=== PATIENT | male | born 1965 | race Caucasian/White ===

== ENCOUNTER 2019-02-06 15:09 | Emergency (ER) | payer MEDICAID ==
[~2019-02-06] VITALS: Ht 180.3 cm; Wt 84.1 kg
[~2019-02-06 15:09] MED LIST: CELE-193 PO; FLO0.4C PO; HYDR-4383 PO
[2019-02-06 15:35] VITALS: BP 133/88
[2019-02-06] MEDS ORDERED: ketorolac trometh inj. 60 MG/2 ML VIAL IM ONE (16:00)
[2019-02-06] MEDS ORDERED: NAPR-56 PO (16:07)
== END 2019-02-06 16:36 | disposition home or self-care (01) ==
LOC: ER 15:09
DX: M25.552 Pain in left hip (principal); G89.29 Other chronic pain; M19.90 Unspecified osteoarthritis, unspecified site; E78.00 Pure hypercholesterolemia, unspecified; I10 Essential (primary) hypertension; Z90.89 Acquired absence of other organs; Z60.2 Problems related to living alone; Z79.899 Other long term (current) drug therapy; Z56.0 Unemployment, unspecified; Z98.890 Other specified postprocedural states; Z87.442 Personal history of urinary calculi
CPT/HCPCS: 96372; 99283; J1885

== ENCOUNTER 2022-08-04 11:57 | Emergency (ER) | payer MEDICAID, MEDICARE ==
[~2022-08-04] VITALS: Ht 180.3 cm; Wt 84.1 kg
[2022-08-04 12:13] VITALS: BP 158/97
[2022-08-04] MEDS ORDERED: AMOX-117 PO (12:52)
== END 2022-08-04 12:58 | disposition home or self-care (01) ==
LOC: ER 11:58
DX: K08.89 Other specified disorders of teeth and supporting structures (principal); E78.00 Pure hypercholesterolemia, unspecified; I10 Essential (primary) hypertension; M19.90 Unspecified osteoarthritis, unspecified site; G89.29 Other chronic pain; Z87.442 Personal history of urinary calculi; Z90.49 Acquired absence of other specified parts of digestive tract; Z98.890 Other specified postprocedural states; Z56.0 Unemployment, unspecified; Z60.2 Problems related to living alone; Z79.899 Other long term (current) drug therapy
CPT/HCPCS: 99283

== ENCOUNTER 2022-09-24 09:49 | Emergency (ER) | payer MEDICAID ==
[~2022-09-24] VITALS: Ht 180.3 cm; Wt 84.1 kg
[2022-09-24 09:52] VITALS: BP 148/97
--- NOTE | 2022-09-24 10:34 | NUR ---
ULTRASOUND AT BEDSIDE.
[2022-09-24 10:45] LABS: CLARITY,URINE CLOUDY (Clear); COLOR,URINE YELLOW (Yellow); GLUCOSE, URINE 100 mg/dl (Neg); KETONES,URINE NEGATIVE (Neg); LEUKOCYTE ESTERASE ,URINE NEGATIVE (Neg); NITRITES, URINE NEGATIVE (Neg); OCCULT BLOOD,URINE MODERATE (Neg); PROTEIN,URINE NEGATIVE (Neg); UROBILINOGEN,URINE 0.2 E.U/dL (0.2-1.0)
[2022-09-24 10:53] LABS: MUCUS STRANDS MANY /LPF (Neg); SQUAMOUS EPITHELIAL CELL,UR FEW /LPF (FEW); UA COLLECTION TYPE CLN CATCH MIDSTREAM
[2022-09-24 10:54] LABS: BACTERIA,URINE FEW /HPF (Neg); HYALINE CASTS 0-3 /LPF (NEGATIVE); RBC,URINE 0-2 /HPF (0-2); WBC,URINE 0-4 /HPF (0-4)
== END 2022-09-24 11:19 | disposition home or self-care (01) ==
LOC: ER 09:49
DX: R10.2 Pelvic and perineal pain (principal); R10.30 Lower abdominal pain, unspecified; E78.00 Pure hypercholesterolemia, unspecified; I10 Essential (primary) hypertension; Z59.00 Homelessness unspecified; Z87.442 Personal history of urinary calculi; Z79.899 Other long term (current) drug therapy
CPT/HCPCS: 76857; 81001; 99284

== ENCOUNTER 2023-08-07 06:08 | Emergency (ER) | payer MEDICAID ==
[~2023-08-07] VITALS: Ht 180.3 cm; Wt 84.1 kg
[2023-08-07 06:15] VITALS: TEMP 98.9
[2023-08-07 09:21] LABS: BILIRUBIN,URINE NEGATIVE (Neg); CLARITY,URINE CLEAR (Clear); COLOR,URINE YELLOW (Yellow); GLUCOSE, URINE 500 mg/dl (Neg); KETONES,URINE 15 mg/dl (Neg); LEUKOCYTE ESTERASE ,URINE NEGATIVE (Neg); NITRITES, URINE NEGATIVE (Neg); OCCULT BLOOD,URINE MODERATE (Neg); PROTEIN,URINE NEGATIVE (Neg); UROBILINOGEN,URINE 0.2 E.U/dL (0.2-1.0)
[2023-08-07 09:26] LABS: UA COLLECTION TYPE NON-SPECIFIED
[2023-08-07 09:27] LABS: BACTERIA,URINE NONE SEEN /HPF (Neg); WBC,URINE 0-4 /HPF (0-4)
[2023-08-07 09:28] LABS: HYALINE CASTS 0-3 /LPF (NEGATIVE); MUCUS STRANDS FEW /LPF (Neg); SQUAMOUS EPITHELIAL CELL,UR FEW /LPF (FEW)
[2023-08-07 11:30] VITALS: BP 158/114; PULSE 101; RESP 16; O2SAT 99
== END 2023-08-07 11:32 | disposition home or self-care (01) ==
LOC: ER 06:08
DX: K59.00 Constipation, unspecified (principal); N21.0 Calculus in bladder; R10.9 Unspecified abdominal pain; E78.00 Pure hypercholesterolemia, unspecified; I10 Essential (primary) hypertension; M19.90 Unspecified osteoarthritis, unspecified site; F17.200 Nicotine dependence, unspecified, uncomplicated; Z79.2 Long term (current) use of antibiotics; Z79.899 Other long term (current) drug therapy
CPT/HCPCS: 72170; 74018; 81001; 99285

== ENCOUNTER 2023-10-13 08:07 | Outpatient (CLI) | payer MEDICAID | END 2023-10-13 23:59 | disposition home or self-care (01) | LOC: 64 CT 08:07 | PROVIDERS: ATTEND Student in an Organized Health Care Education/Training Program | DX: N20.0 Calculus of kidney (principal); N28.1 Cyst of kidney, acquired; N21.0 Calculus in bladder; K76.0 Fatty (change of) liver, not elsewhere classified | CPT/HCPCS: 74176 ==

== ENCOUNTER 2024-02-23 09:20 | Day surgery (SDC) | payer MEDICAID ==
[2024-02-23] VITALS (12 sets, daily range): BP systolic 92–175; BP diastolic 57–98; PULSE 71–88; RESP 16; TEMP 97.8; O2SAT 95–99
[~2024-02-23] VITALS: Ht 180.3 cm; Wt 88.3 kg
[2024-02-23] MEDS ORDERED: LIDOcaine 1% 30ml preserv. free vial ONE (10:22)
[2024-02-23] MEDS ORDERED: fentaNYL/PF 50MCG/1 ML 2ML syringe ONE ×2 (10:23→11:41)
[2024-02-23] MEDS ORDERED: midazolam 1 mg/ML 2ml injection ONE ×2 (10:23→11:25)
[2024-02-23] MEDS ORDERED: iohexol 350MG/ML 100ml bottle IV ONE (10:23)
[2024-02-23] MEDS ORDERED: iohexol 350 MG/ML 50ML vial IV ONE ×2 (10:25→11:38)
[2024-02-23 10:27] LABS: BASOPHILS # (AUTO) 0.1 X10'3 (0-0.2); EOSINOPHILS # (AUTO) 0.1 X10'3 (0-0.9); EOSINOPHILS % (AUTO) 1.1 % (0-6); HEMATOCRIT 40.2 % (42.0-52.0); HEMOGLOBIN 13.9 g/dl (14.0-17.9); LYMPHOCYTES % (AUTO) 27.4 % (21-51); MEAN CORPUSCULAR HEMOGLOBIN 32.9 PG (27.0-31.0); MEAN CORPUSCULAR HGB CONC 34.7 g/dL (33.0-36.5); MEAN CORPUSCULAR VOLUME 94.8 FL (78-98); MEAN PLATELET VOLUME 7.8 FL (7.4-10.4); MONOCYTES # (AUTO) 0.6 X10'3 (0-0.9); MONOCYTES % (AUTO) 7.6 % (2-12); NEUTROPHILS # (AUTO) 4.6 X10'3 (1.8-7.7); NEUTROPHILS % (AUTO) 62.9 % (42-75); PLATELET COUNT 427 X10'3 (140-440); RED BLOOD COUNT 4.24 X10'6 (4.70-6.10); RED CELL DISTRIBUTION WIDTH 12.8 % (11.5-14.5); WHITE BLOOD COUNT 7.3 X10'3 (4.5-11.0)
[2024-02-23 10:28] LABS: APTT 29 SECONDS (22-32)
[2024-02-23 10:40] LABS: ANION GAP 9 (8-16); BLOOD UREA NITROGEN 18 MG/DL (7-18); BUN/CREATININE RATIO 19.6 (10.0-20.0); CALCIUM 9.3 MG/DL (8.5-10.1); CHLORIDE 100 MMOL/L (99-107); CREATININE 0.92 MG/DL (0.60-1.10); GLUCOSE 114 MG/DL (70-104); POTASSIUM 3.5 MMOL/L (3.5-5.1); PRO BRAIN NATRIURETIC PEPTIDE 113 PG/ML (0-125); SODIUM 137 MMOL/L (135-145); TOTAL CARBON DIOXIDE 27.8 MMOL/L (24-32); eCRCL 92 ML/MIN; eGFR 84 ML/MIN
[2024-02-23] MEDS: diphenhydrAMINE 25mg capsule PO PRN (10:44)
[2024-02-23] MEDS: LORazepam 0.5 MG tablet PO PRN (10:44)
[2024-02-23] MEDS: normal saline 1,000 ML IV SCH (10:45)
[2024-02-23] MEDS ORDERED: FLO0.4C (10:48)
[2024-02-23] MEDS ORDERED: METO-411 PO (10:48)
[2024-02-23] MEDS ORDERED: PRAV80TA3 PO (10:48)
[2024-02-23] MEDS ORDERED: LOSA50TA64 PO (10:48)
[2024-02-23] MEDS ORDERED: IBUP-2697 PO (10:48)
[2024-02-23] MEDS ORDERED: HYDR25TA4 PO (10:48)
[2024-02-23] MEDS ORDERED: ASPI-611 PO (10:48)
[2024-02-23] MEDS ORDERED: NITR0.4T48 (10:48)
[2024-02-23 10:54] LABS: PROTHROMBIN TIME 10.3 SECONDS (9.0-12.0)
[2024-02-23] MEDS ORDERED: normal saline 1000ml 1,000 ML IV SCH (12:30)
[2024-02-23] MEDS ORDERED: nitroGLYCERIN 0.4mg SUBLingual tab SL PRN (12:30)
[2024-02-23] MEDS ORDERED: OXAZEpam 15mg capsule PO PRN (12:30)
[2024-02-23] MEDS ORDERED: HYDROcodone/acetaminophen 5mg/325mg tablet PO PRN (12:30)
[2024-02-23] MEDS ORDERED: HYDROcodone/acetaminophen 10/325mg tab PO PRN (12:30)
[2024-02-23] MEDS ORDERED: ondansetron/PF 4mg/2ml inj IV PRN (12:30)
[2024-02-23] MEDS ORDERED: proCHLORperazine 10 MG/2 ml inj IV PRN (12:30)
== END 2024-02-23 18:00 | disposition home or self-care (01) ==
LOC: SSTAY O 09:20
PROVIDERS: ATTEND Internal Medicine Cardiovascular Disease
DX: R94.39 Abnormal result of other cardiovascular function study (principal); I42.9 Cardiomyopathy, unspecified; I25.10 Atherosclerotic heart disease of native coronary artery without angina pectoris; E78.5 Hyperlipidemia, unspecified; I73.9 Peripheral vascular disease, unspecified; J44.9 Chronic obstructive pulmonary disease, unspecified; I44.7 Left bundle-branch block, unspecified; I10 Essential (primary) hypertension; Z79.01 Long term (current) use of anticoagulants; Z79.899 Other long term (current) drug therapy; Z98.890 Other specified postprocedural states; Z87.891 Personal history of nicotine dependence
CPT/HCPCS: 36415; 71046; 80048; 83880; 85025; 85610; 85730; 93005; 93458; 99152; 99153; J1644; J2003; J2250; J3010; J7030; Q0163; Q9967; A6258; C1760; C1769; C1894

== ENCOUNTER 2024-04-13 10:13 | Inpatient (IN) | payer MEDICAID ==
[2024-04-06 13:06] VITALS: PULSE 77; RESP 12; O2SAT 96
[2024-04-06 14:01] LABS: BASOPHILS # (AUTO) 0.1 X10'3 (0-0.2); BASOPHILS % (AUTO) 1.2 % (0-1); EOSINOPHILS # (AUTO) 0.2 X10'3 (0-0.9); EOSINOPHILS % (AUTO) 2.3 % (0-6); LYMPHOCYTES # (AUTO) 2.3 X10'3 (1.1-4.8); LYMPHOCYTES % (AUTO) 30.9 % (21-51); MEAN CORPUSCULAR HEMOGLOBIN 32.7 PG (27.0-31.0); MEAN CORPUSCULAR HGB CONC 34.6 g/dL (33.0-36.5); MEAN CORPUSCULAR VOLUME 94.6 FL (78-98); MEAN PLATELET VOLUME 7.4 FL (7.4-10.4); MONOCYTES # (AUTO) 0.6 X10'3 (0-0.9); MONOCYTES % (AUTO) 8.1 % (2-12); NEUTROPHILS # (AUTO) 4.3 X10'3 (1.8-7.7); NEUTROPHILS % (AUTO) 57.5 % (42-75); PRE OP HEMATOCRIT 41.3 % (42.0-52.0); PRE OP HEMOGLOBIN 14.3 g/dL (14.0-17.9); PRE OP PLATELET COUNT 459 X10'3 (140-440); PRE OP WHITE BLOOD COUNT 7.5 10'3 (4.8-10.8); RED BLOOD COUNT 4.36 X10'6 (4.70-6.10); RED CELL DISTRIBUTION WIDTH 12.6 % (11.5-14.5)
[2024-04-06 14:15] LABS: BILIRUBIN,URINE NEGATIVE (Neg); CLARITY,URINE CLEAR (Clear); COLOR,URINE YELLOW (Yellow); GLUCOSE, URINE NEGATIVE (Neg); KETONES,URINE NEGATIVE (Neg); LEUKOCYTE ESTERASE ,URINE NEGATIVE (Neg); NITRITES, URINE NEGATIVE (Neg); OCCULT BLOOD,URINE TRACE-INTACT (Neg); PROTEIN,URINE NEGATIVE (Neg); UROBILINOGEN,URINE 0.2 E.U/dL (0.2-1.0)
[2024-04-06 14:16] LABS: UA COLLECTION TYPE NON-SPECIFIED
[2024-04-06 14:19] LABS: HEMOGLOBIN A1C 5.8 % (4.5-6.2)
[2024-04-06 14:20] LABS: PRE OP PROTIME 10.6 SECONDS (9.0-12.0)
[2024-04-06 14:21] LABS: ALBUMIN/GLOBULIN RATIO 0.9 (1.1-1.5); ALKALINE PHOSPHATASE 93 IU/L (46-116); BLOOD UREA NITROGEN 18 MG/DL (7-18); BUN/CREATININE RATIO 19.4 (10.0-20.0); CALCIUM 8.3 MG/DL (8.5-10.1); CHLORIDE 98 MMOL/L (99-107); CREATININE 0.93 MG/DL (0.60-1.10); PRE OP ALT 31 U/L (30-65); PRE OP ANION GAP 9 (8-16); PRE OP AST 16 U/L (10-37); PRE OP BILIRUB, TOTAL 0.3 MG/DL (0.0-1.0); PRE OP GLUCOSE 107 MG/DL (70-104); PRE OP POTASSIUM 3.6 MMOL/L (3.4-5.1); PRE OP SODIUM 136 MMOL/L (135-145); TOTAL CARBON DIOXIDE 29.3 MMOL/L (24-32); TOTAL PROTEIN 8.4 G/DL (6.4-8.2); eGFR 83 ML/MIN
[2024-04-06 14:22] LABS: BACTERIA,URINE NONE SEEN /HPF (Neg); MUCUS STRANDS NONE SEEN /LPF (Neg); RBC,URINE 0-2 /HPF (0-2); SQUAMOUS EPITHELIAL CELL,UR NONE SEEN /LPF (FEW); WBC,URINE 0-4 /HPF (0-4)
[2024-04-07 06:46] LABS: ABG BASE EXCESS 1.3 mmol/L (-2.0-3.0); ABG OXYGEN SATURATION 96.1 % (94.0-98.0); ABG PCO2 (T) 36.7 mmHg (35.0-48.0); ABG PH (T) 7.451 (7.350-7.450); ABG PO2 (T) 82.7 mmHg (83.0-108.0); ALLEN'S TEST POSITIVE; FCOHb 0.1 % (0.5-1.5); FHHb 3.9 % (0.0-5.0); MODE ROOM AIR; TOTAL HEMOGLOBIN 14.7 G/dl (13.5-17.5)
[~2024-04-13] VITALS: Ht 180.3 cm; Wt 89.5 kg
[2024-04-13] VITALS (18 sets, daily range): BP systolic 91–162; BP diastolic 52–92; PULSE 52–97; RESP 14–32; TEMP 98.7; O2SAT 95–100
[2024-04-13] MEDS: ceFAZolin 2gm in dextrose, iso 50 ML IV ONE (05:30)
[~2024-04-13 10:13] MED LIST changes: +ASPI-611 PO; -CELE-193 PO; +DOCU100C40 PO; -HYDR-4383 PO; +HYDR25TA4 PO; +Insulin Reg/NS 100units/100mL 100 ML IV SCH; +LOSA50TA64 PO; +METO-411 PO; +PRAV80TA3 PO; +dextrose 50%-water 50ml dispensing syringe IV PRN; +insulin glargine (Lantus) pen - multi-dose SQ PRN
[2024-04-13] MEDS ORDERED: epiNEPHrine 1 mg/ml inj ONE (10:44)
[2024-04-13] MEDS ORDERED: vancomycin 1,000mg inj ONE (10:45)
[2024-04-13] MEDS ORDERED: ROPIVAcaine 0.5% (5mg/ml) 30ml vial ONE (10:45)
[2024-04-13] MEDS ORDERED: ceFAZolin 1000mg inj ONE (10:45)
[2024-04-13] MEDS: ringers solution, lacted 1,000 ML IV SCH (10:59)
[2024-04-13] MEDS: mupirocin 2% nasal ointment 1gm UD NS ONE (11:00)
[2024-04-13] MEDS: VANCOMYCIN/H2O 1.5g/300mL PB 300 ML IV ONE (11:00)
[2024-04-13] MEDS: famotidine 20mg tablet PO ONE (11:02)
[2024-04-13] MEDS: metoprolol tartrate 12.5mg (1/2 tablet) PO ONE (11:02)
[2024-04-13] MEDS ORDERED: sevoflurane 250ml liquid IH ONE (12:38)
[2024-04-13] MEDS: LORazepam 2 mg/ml vial IV ONE (12:40)
[2024-04-13] MEDS ORDERED: SUfentanil 50mcg/ml 1ml amp IV ONE (12:43)
[2024-04-13] MEDS ORDERED: MIDAZolam 1 MG/ML 5ML VIAL ONE (12:43)
[2024-04-13 13:23] LABS: ABG BASE EXCESS 0.5 mmol/L (-2.0-3.0); ABG HCO3 23.9 mmol/L (21.0-28.0); ABG OXYGEN SATURATION 99.4 % (94.0-98.0); ABG PCO2 34.6 mmHg (35.0-48.0); ABG PH 7.457 (7.350-7.450); ABG PO2 254.3 mmHg (83.0-108.0); CL (ABG) 99 mmol/L (98-107); FHHb 0.6 % (0.0-5.0); FMetHb 0.3 % (0.0-1.5); FO2Hb 99.1 % (94.0-98.0); GLUCOSE (ABG) 110 mg/dl (65-95); IONIZED CA (ABG) 1.13 mmol/L (1.15-1.33); K (ABG) 3.6 mmol/L (3.40-4.50); TOTAL HEMOGLOBIN 12.8 G/dl (13.5-17.5)
[2024-04-13] MEDS: papaverine 30 mg/ml 2ml inj. IA ONE (13:55)
[2024-04-13 14:28] LABS: ABG BASE EXCESS 1.3 mmol/L (-2.0-3.0); ABG OXYGEN SATURATION 99.3 % (94.0-98.0); ABG PCO2 36.1 mmHg (35.0-48.0); ABG PH 7.459 (7.350-7.450); CL (ABG) 96 mmol/L (98-107); FCOHb 0.1 % (0.5-1.5); FHHb 0.7 % (0.0-5.0); FMetHb 0.3 % (0.0-1.5); FO2Hb 98.9 % (94.0-98.0); GLUCOSE (ABG) 96 mg/dl (65-95); K (ABG) 3.5 mmol/L (3.40-4.50); TOTAL HEMOGLOBIN 8.8 G/dl (13.5-17.5)
[2024-04-13 15:00] LABS: ABG BASE EXCESS -1.1 mmol/L (-2.0-3.0); ABG HCO3 24.4 mmol/L (21.0-28.0); ABG OXYGEN SATURATION 99.2 % (94.0-98.0); ABG PCO2 43.7 mmHg (35.0-48.0); ABG PH 7.364 (7.350-7.450); CL (ABG) 99 mmol/L (98-107); FCOHb 0.3 % (0.5-1.5); FHHb 0.8 % (0.0-5.0); FMetHb 0.3 % (0.0-1.5); FO2Hb 98.6 % (94.0-98.0); GLUCOSE (ABG) 145 mg/dl (65-95); IONIZED CA (ABG) 1.02 mmol/L (1.15-1.33); K (ABG) 3.7 mmol/L (3.40-4.50); TOTAL HEMOGLOBIN 10.2 G/dl (13.5-17.5)
[2024-04-13 15:27] LABS: ABG HCO3 24.1 mmol/L (21.0-28.0); ABG OXYGEN SATURATION 99.3 % (94.0-98.0); ABG PCO2 47.2 mmHg (35.0-48.0); ABG PH 7.326 (7.350-7.450); CL (ABG) 100 mmol/L (98-107); FCOHb 0.3 % (0.5-1.5); FHHb 0.7 % (0.0-5.0); FMetHb 0.3 % (0.0-1.5); FO2Hb 98.7 % (94.0-98.0); GLUCOSE (ABG) 188 mg/dl (65-95); IONIZED CA (ABG) 1.03 mmol/L (1.15-1.33); K (ABG) 3.7 mmol/L (3.40-4.50); TOTAL HEMOGLOBIN 10.4 G/dl (13.5-17.5)
[2024-04-13] MEDS ORDERED: dextrose 50%-water 50ml dispensing syringe IV PRN (16:10)
[2024-04-13] MEDS ORDERED: potassium CL 10mEq/100ml bag 100 ML IV PRN (16:10)
[2024-04-13] MEDS ORDERED: bisacodyl 10mg suppository rectal RC PRN (16:10)
[2024-04-13] MEDS ORDERED: acetaminophen 325mg tablet PO PRN (16:10)
[2024-04-13] MEDS ORDERED: insulin glargine (Lantus) pen - multi-dose SQ PRN (16:10)
[2024-04-13] MEDS ORDERED: mineral oil 133ml enema RC PRN (16:10)
[2024-04-13] MEDS ORDERED: niCARDipine-NS 40mg/200ml IVPB 200 ML IV PRN (16:10)
[2024-04-13] MEDS: nitroGLYCERIN-Tridil 50MG/D5W 250 ML IV SCH (16:10)
[2024-04-13] MEDS ORDERED: potassium Cl 40MEQ/1/2NS 520ml 520 ML IV PRN (16:10)
[2024-04-13] MEDS ORDERED: sodium phosphate inj. 30 MMOL in dextrose 5%-water 250 ML IV PRN (16:10)
[2024-04-13] MEDS: Insulin Reg/NS 100units/100mL 100 ML IV SCH (16:10)
[2024-04-13] MEDS ORDERED: metoclopramide 5 mg/ml inj IV PRN (16:10)
[2024-04-13] MEDS ORDERED: propofol inj 20 ML IV ONE (16:14)
[2024-04-13] MEDS ORDERED: metoprolol tartrate 1mg/ml inj IV ONE (16:14)
[2024-04-13] MEDS ORDERED: rocuronium 10mg/ml inj IV ONE ×3 (16:14)
[2024-04-13 16:15] LABS: ABG BASE EXCESS -1.7 mmol/L (-2.0-3.0); ABG HCO3 24.6 mmol/L (21.0-28.0); ABG PCO2 48.3 mmHg (35.0-48.0); ABG PH 7.324 (7.350-7.450); CL (ABG) 102 mmol/L (98-107); FCOHb 0.1 % (0.5-1.5); FHHb 16.9 % (0.0-5.0); FMetHb 0.2 % (0.0-1.5); FO2Hb 82.8 % (94.0-98.0); GLUCOSE (ABG) 168 mg/dl (65-95); IONIZED CA (ABG) 1.16 mmol/L (1.15-1.33); K (ABG) 3.2 mmol/L (3.40-4.50); TOTAL HEMOGLOBIN 11.2 G/dl (13.5-17.5)
[2024-04-13 16:17] LABS: ACTIVATED CLOTTING TIME 113 SEC (101-148)
[2024-04-13] MEDS: morphine 4 MG/ML inj SYRINge IV PRN (16:37)
[2024-04-13 16:46] LABS: ABG BASE EXCESS -2.4 mmol/L (-2.0-3.0); ABG HCO3 22.7 mmol/L (21.0-28.0); ABG OXYGEN SATURATION 98.4 % (94.0-98.0); ABG PCO2 (T) 39.7 mmHg (35.0-48.0); ABG PH (T) 7.373 (7.350-7.450); FCOHb 0.2 % (0.5-1.5); FHHb 1.6 % (0.0-5.0); FMetHb 0.3 % (0.0-1.5); FO2Hb 97.9 % (94.0-98.0); MODE VENT - SIMV/VC; PATIENT TEMPERATURE 36.7; PEEP 5 cm H2O; RESPIRATORY RATE 12 b/min; TIDAL VOLUME 500 mL
[2024-04-13 16:50] LABS: BASOPHILS % (AUTO) 0.1 % (0-1); EOSINOPHILS % (AUTO) 0.3 % (0-6); HEMATOCRIT 28.2 % (42.0-52.0); HEMOGLOBIN 9.6 g/dl (14.0-17.9); LYMPHOCYTES % (AUTO) 6.6 % (21-51); MEAN CORPUSCULAR HEMOGLOBIN 32.6 PG (27.0-31.0); MEAN CORPUSCULAR HGB CONC 34.2 g/dL (33.0-36.5); MEAN CORPUSCULAR VOLUME 95.3 FL (78-98); MEAN PLATELET VOLUME 7.3 FL (7.4-10.4); MONOCYTES # (AUTO) 0.6 X10'3 (0-0.9); MONOCYTES % (AUTO) 3.8 % (2-12); NEUTROPHILS # (AUTO) 13.8 X10'3 (1.8-7.7); NEUTROPHILS % (AUTO) 89.2 % (42-75); PLATELET COUNT 230 X10'3 (140-440); RED BLOOD COUNT 2.96 X10'6 (4.70-6.10); RED CELL DISTRIBUTION WIDTH 12.5 % (11.5-14.5); WHITE BLOOD COUNT 15.5 X10'3 (4.5-11.0)
[2024-04-13] MEDS: albumin (Human) 5% 250ml 250 ML IV PRN (17:04)
[2024-04-13] MEDS: sodium chloride 0.45% 1,000 ML IV SCH (17:07)
[2024-04-13 17:09] LABS: ALANINE AMINOTRANSFERASE 23 U/L (12-78); ALBUMIN 3.1 G/DL (3.4-5.0); ALBUMIN/GLOBULIN RATIO 1.6 (1.1-1.5); ALKALINE PHOSPHATASE 42 IU/L (46-116); ANION GAP 7 (8-16); ASPARTATE AMINO TRANSFERASE 19 U/L (10-37); BILIRUBIN,TOTAL 0.6 MG/DL (0.1-1.0); BLOOD UREA NITROGEN 11 MG/DL (7-18); BUN/CREATININE RATIO 18.6 (10.0-20.0); CALCIUM 7.3 MG/DL (8.5-10.1); CHLORIDE 111 MMOL/L (99-107); CREATININE 0.59 MG/DL (0.60-1.10); GLUCOSE 143 MG/DL (70-104); PHOSPHORUS 2.6 MG/DL (2.3-4.5); SODIUM 144 MMOL/L (135-145); TOTAL CARBON DIOXIDE 25.7 MMOL/L (24-32); eCRCL 144 ML/MIN; eGFR > 90 ML/MIN
[2024-04-13 17:32] LABS: POTASSIUM 2.7 MMOL/L (3.5-5.1)
[2024-04-13] MEDS: magnesium sulf-water 4G/100mL 100 ML IV PRN (17:43)
[2024-04-13] MEDS: DOCUMENT DATE & TIME OF BETA-BLOCKER PO ONE (17:46)
[2024-04-13] MEDS: potassium Cl 40MEQ/270ML bag 250 ML IV PRN (17:56)
[2024-04-13] MEDS: dexmedetomidin/NS 400mcg/100ml 100 ML IV PRN (18:38)
[2024-04-13 18:48] LABS: APTT 24 SECONDS (22-32); INR 1.1 INR; PROTHROMBIN TIME 11.9 SECONDS (9.0-12.0)
[2024-04-13] MEDS: ketorolac trometh 15mg/ml vial 15 MG/ML ML IV SCH (19:11)
[2024-04-13] MEDS: HYDROcodone/acetaminophen 10/325mg tab PO PRN (20:04)
[2024-04-13] MEDS: mupirocin 2% nasal ointment 1gm UD NS SCH (20:04)
[2024-04-13] MEDS: sennosides/docusate sodium tablet PO SCH (20:04)
[2024-04-13] MEDS: ondansetron/PF 4mg/2ml inj IV PRN (20:04)
[2024-04-13] MEDS: VANCOMYCIN 1GM 200ML H20 (PEG) 200 ML IV SCH (20:04)
[2024-04-13] MEDS: atorvastatin 10mg tablet PO SCH (20:05)
[2024-04-13 20:17] LABS: ABG BASE EXCESS -4.3 mmol/L (-2.0-3.0); ABG HCO3 20.7 mmol/L (21.0-28.0); ABG OXYGEN SATURATION 96.7 % (94.0-98.0); ABG PCO2 (T) 36.8 mmHg (35.0-48.0); ABG PH (T) 7.367 (7.350-7.450); ABG PO2 (T) 90.5 mmHg (83.0-108.0); FCOHb 0.3 % (0.5-1.5); FHHb 3.3 % (0.0-5.0); FMetHb 0.3 % (0.0-1.5); FO2Hb 96.1 % (94.0-98.0); MODE spont 10; PATIENT TEMPERATURE 36.6; TOTAL HEMOGLOBIN 10.2 G/dl (13.5-17.5)
[2024-04-13 22:40] LABS: BASOPHILS % (AUTO) 0.1 % (0-1); EOSINOPHILS % (AUTO) 0 % (0-6); HEMATOCRIT 27.5 % (42.0-52.0); HEMOGLOBIN 9.6 g/dl (14.0-17.9); LYMPHOCYTES # (AUTO) 0.4 X10'3 (1.1-4.8); LYMPHOCYTES % (AUTO) 2.7 % (21-51); MEAN CORPUSCULAR HEMOGLOBIN 33.3 PG (27.0-31.0); MEAN PLATELET VOLUME 7.3 FL (7.4-10.4); MONOCYTES # (AUTO) 0.7 X10'3 (0-0.9); MONOCYTES % (AUTO) 4.2 % (2-12); NEUTROPHILS # (AUTO) 14.7 X10'3 (1.8-7.7); PLATELET COUNT 244 X10'3 (140-440); RED BLOOD COUNT 2.89 X10'6 (4.70-6.10); RED CELL DISTRIBUTION WIDTH 12.5 % (11.5-14.5); WHITE BLOOD COUNT 15.8 X10'3 (4.5-11.0)
[2024-04-13 22:55] LABS: ANION GAP 4 (8-16); BLOOD UREA NITROGEN 15 MG/DL (7-18); BUN/CREATININE RATIO 17.9 (10.0-20.0); CALCIUM 7.8 MG/DL (8.5-10.1); CHLORIDE 110 MMOL/L (99-107); CREATININE 0.84 MG/DL (0.60-1.10); GLUCOSE 119 MG/DL (70-104); MAGNESIUM 2.6 MG/DL (1.5-2.4); PHOSPHORUS 1.5 MG/DL (2.3-4.5); POTASSIUM 4.3 MMOL/L (3.5-5.1); SODIUM 141 MMOL/L (135-145); TOTAL CARBON DIOXIDE 26.7 MMOL/L (24-32); eCRCL 101 ML/MIN; eGFR > 90 ML/MIN
[2024-04-13] MEDS: potassium Cl 20mEq/100mL bag 100 ML IV PRN (23:14)
[2024-04-13] MEDS: ceFAZolin/D5W- 1GM premix 50 ML IV SCH (23:51)
[2024-04-14] VITALS (25 sets, daily range): BP systolic 84–146; BP diastolic 44–76; PULSE 79–117; RESP 16–30; O2SAT 92–98
[2024-04-14] MEDS: sodium phosphate inj. 15 MMOL in dextrose 5%-water 250 ML IV PRN (00:51)
[2024-04-14 03:12] LABS: BASOPHILS % (AUTO) 0 % (0-1); EOSINOPHILS % (AUTO) 0 % (0-6); HEMOGLOBIN 9.1 g/dl (14.0-17.9); LYMPHOCYTES # (AUTO) 0.6 X10'3 (1.1-4.8); LYMPHOCYTES % (AUTO) 3.8 % (21-51); MEAN CORPUSCULAR HEMOGLOBIN 33.2 PG (27.0-31.0); MEAN CORPUSCULAR HGB CONC 35.1 g/dL (33.0-36.5); MEAN CORPUSCULAR VOLUME 94.7 FL (78-98); MEAN PLATELET VOLUME 7.3 FL (7.4-10.4); MONOCYTES # (AUTO) 0.2 X10'3 (0-0.9); MONOCYTES % (AUTO) 1.5 % (2-12); NEUTROPHILS # (AUTO) 13.7 X10'3 (1.8-7.7); NEUTROPHILS % (AUTO) 94.7 % (42-75); PLATELET COUNT 237 X10'3 (140-440); RED BLOOD COUNT 2.75 X10'6 (4.70-6.10); RED CELL DISTRIBUTION WIDTH 12.7 % (11.5-14.5); WHITE BLOOD COUNT 14.4 X10'3 (4.5-11.0)
[2024-04-14 04:01] LABS: ALANINE AMINOTRANSFERASE 25 U/L (12-78); ALBUMIN 3.8 G/DL (3.4-5.0); ALBUMIN/GLOBULIN RATIO 1.6 (1.1-1.5); ALKALINE PHOSPHATASE 40 IU/L (46-116); ANION GAP 5 (8-16); ASPARTATE AMINO TRANSFERASE 24 U/L (10-37); BILIRUBIN,TOTAL 0.5 MG/DL (0.1-1.0); BLOOD UREA NITROGEN 16 MG/DL (7-18); BUN/CREATININE RATIO 18.6 (10.0-20.0); CALCIUM 7.6 MG/DL (8.5-10.1); CHLORIDE 109 MMOL/L (99-107); CREATININE 0.86 MG/DL (0.60-1.10); GLUCOSE 149 MG/DL (70-104); MAGNESIUM 2.5 MG/DL (1.5-2.4); PHOSPHORUS 3.2 MG/DL (2.3-4.5); SODIUM 139 MMOL/L (135-145); TOTAL CARBON DIOXIDE 25.4 MMOL/L (24-32); TOTAL PROTEIN 6.2 G/DL (6.4-8.2); eCRCL 99 ML/MIN; eGFR > 90 ML/MIN
[2024-04-14] MEDS: aspirin 81mg tab.chew PO SCH (07:32)
[2024-04-14] MEDS: metoprolol tartrate 12.5mg (1/2 tablet) PO SCH (07:32)
[2024-04-14] MEDS: albumin (Human) 5% 250ml 250 ML IV ONE (14:06)
[2024-04-14] MEDS: acetaminophen 325mg tablet PO PRN (19:25)
[2024-04-14] MEDS ORDERED: dextrose 50%-water 50ml dispensing syringe IV PRN ×2 (19:30)
[2024-04-14] MEDS ORDERED: glucagon, human recombinant 1mg kit SUBCUT PRN (19:30)
[2024-04-14] MEDS ORDERED: DEXTROSE 15 GM of carb/4 tabs (each vial/BOTTLE has 4 tablets) PO PRN ×2 (19:30)
[2024-04-14] MEDS: metoprolol tartrate 12.5mg (1/2 tablet) PO ONE (19:54)
[2024-04-14] MEDS: metoprolol tartrate 25mg tablet PO SCH (20:00)
[2024-04-14] MEDS: INSULIN LISPRO 100 UNIT/ML INSULN.PEN MULTI-DOSE SQ SCH (21:22)
[2024-04-14] MEDS: insulin glargine (Lantus) pen - multi-dose SQ SCH (21:23)
[2024-04-15] VITALS (27 sets, daily range): BP systolic 90–135; BP diastolic 52–78; PULSE 84–116; RESP 14–31; TEMP 97–100.8; O2SAT 93–98
[2024-04-15] MEDS: morphine 2 MG/ML inj. syringe IV PRN (00:27)
[2024-04-15 02:20] LABS: BASOPHILS % (AUTO) 0.1 % (0-1); EOSINOPHILS % (AUTO) 0 % (0-6); LYMPHOCYTES # (AUTO) 1.3 X10'3 (1.1-4.8); LYMPHOCYTES % (AUTO) 7.6 % (21-51); MEAN CORPUSCULAR HEMOGLOBIN 32.9 PG (27.0-31.0); MEAN CORPUSCULAR HGB CONC 34.6 g/dL (33.0-36.5); MEAN CORPUSCULAR VOLUME 95.2 FL (78-98); MEAN PLATELET VOLUME 7.7 FL (7.4-10.4); MONOCYTES # (AUTO) 1.5 X10'3 (0-0.9); MONOCYTES % (AUTO) 8.3 % (2-12); NEUTROPHILS # (AUTO) 14.8 X10'3 (1.8-7.7); PLATELET COUNT 241 X10'3 (140-440); RED BLOOD COUNT 2.06 X10'6 (4.70-6.10); RED CELL DISTRIBUTION WIDTH 12.6 % (11.5-14.5); WHITE BLOOD COUNT 17.6 X10'3 (4.5-11.0)
[2024-04-15 02:32] LABS: ALBUMIN 3.2 G/DL (3.4-5.0); ANION GAP 5 (8-16); BLOOD UREA NITROGEN 20 MG/DL (7-18); BUN/CREATININE RATIO 20.8 (10.0-20.0); CALCIUM 7.7 MG/DL (8.5-10.1); CHLORIDE 102 MMOL/L (99-107); CREATININE 0.96 MG/DL (0.60-1.10); GLUCOSE 158 MG/DL (70-104); MAGNESIUM 2.3 MG/DL (1.5-2.4); PHOSPHORUS 2.3 MG/DL (2.3-4.5); POTASSIUM 4.2 MMOL/L (3.5-5.1); SODIUM 134 MMOL/L (135-145); TOTAL CARBON DIOXIDE 27.5 MMOL/L (24-32); eCRCL 88 ML/MIN; eGFR 80 ML/MIN
[2024-04-15 02:47] LABS: HEMATOCRIT 19.6 % (42.0-52.0); HEMOGLOBIN 6.8 g/dl (14.0-17.9)
[2024-04-15] MEDS: magnesium sulf-water 2g/50mL 50 ML IV PRN (03:08)
[2024-04-15 03:17] LABS: PLATELET ESTIMATE NORMAL; TOTAL CELLS COUNTED 100
[2024-04-15] MEDS: potassium Cl 20 mEq SR tablet PO PRN (03:19)
[2024-04-15] MEDS: magnesium hydroxide 30ml (MOM) UD suspension PO PRN (04:47)
[2024-04-15] MEDS: furosemide 40mg/4ml inj IV ONE (04:52)
[2024-04-15] MEDS: HYDROcodone/acetaminophen 10/325mg tab PO PRN (05:39)
[2024-04-15 07:15] LABS: HEMOGLOBIN 8.2 g/dl (14.0-17.9); MEAN CORPUSCULAR HGB CONC 34.2 g/dL (33.0-36.5); MEAN CORPUSCULAR VOLUME 90.8 FL (78-98); MEAN PLATELET VOLUME 7.8 FL (7.4-10.4); PLATELET COUNT 241 X10'3 (140-440); RED BLOOD COUNT 2.64 X10'6 (4.70-6.10); RED CELL DISTRIBUTION WIDTH 16.7 % (11.5-14.5); WHITE BLOOD COUNT 17.6 X10'3 (4.5-11.0)
[2024-04-15] MEDS: pantoprazole 40mg Tablet.DR PO SCH (09:15)
[2024-04-15] MEDS: lactose-reduced food (Ensure Enlive) - 237ml bottle PO SCH (09:16)
[2024-04-15 12:05] LABS: BASOPHILS % (AUTO) 0.1 % (0-1); EOSINOPHILS % (AUTO) 0 % (0-6); HEMATOCRIT 23.4 % (42.0-52.0); HEMOGLOBIN 7.9 g/dl (14.0-17.9); LYMPHOCYTES # (AUTO) 1.5 X10'3 (1.1-4.8); LYMPHOCYTES % (AUTO) 8.8 % (21-51); MEAN CORPUSCULAR HEMOGLOBIN 30.6 PG (27.0-31.0); MEAN CORPUSCULAR HGB CONC 33.9 g/dL (33.0-36.5); MEAN CORPUSCULAR VOLUME 90.3 FL (78-98); MEAN PLATELET VOLUME 7.4 FL (7.4-10.4); MONOCYTES # (AUTO) 1.5 X10'3 (0-0.9); NEUTROPHILS # (AUTO) 13.7 X10'3 (1.8-7.7); NEUTROPHILS % (AUTO) 82.1 % (42-75); PLATELET COUNT 230 X10'3 (140-440); RED BLOOD COUNT 2.59 X10'6 (4.70-6.10); RED CELL DISTRIBUTION WIDTH 16.7 % (11.5-14.5); WHITE BLOOD COUNT 16.7 X10'3 (4.5-11.0)
[2024-04-15 12:20] LABS: ALBUMIN 3.2 G/DL (3.4-5.0); ANION GAP 5 (8-16); BLOOD UREA NITROGEN 20 MG/DL (7-18); BUN/CREATININE RATIO 22.2 (10.0-20.0); CALCIUM 7.8 MG/DL (8.5-10.1); CHLORIDE 99 MMOL/L (99-107); GLUCOSE 156 MG/DL (70-104); MAGNESIUM 2.8 MG/DL (1.5-2.4); PHOSPHORUS 1.9 MG/DL (2.3-4.5); POTASSIUM 4.4 MMOL/L (3.5-5.1); SODIUM 133 MMOL/L (135-145); eCRCL 94 ML/MIN; eGFR 86 ML/MIN
[2024-04-15] MEDS: Neutra Phos packet PO PRN (15:00)
[2024-04-16] VITALS (9 sets, daily range): BP systolic 123–140; BP diastolic 60–80; PULSE 86–125; RESP 14–25; TEMP 96.7–98.1; O2SAT 94–99
[2024-04-16 06:22] LABS: BASOPHILS % (AUTO) 0.2 % (0-1); EOSINOPHILS % (AUTO) 0 % (0-6); HEMOGLOBIN 7.5 g/dl (14.0-17.9); LYMPHOCYTES # (AUTO) 1.8 X10'3 (1.1-4.8); LYMPHOCYTES % (AUTO) 12.4 % (21-51); MEAN CORPUSCULAR HEMOGLOBIN 31.8 PG (27.0-31.0); MEAN CORPUSCULAR HGB CONC 34.8 g/dL (33.0-36.5); MEAN CORPUSCULAR VOLUME 91.3 FL (78-98); MEAN PLATELET VOLUME 7.7 FL (7.4-10.4); MONOCYTES # (AUTO) 1.3 X10'3 (0-0.9); MONOCYTES % (AUTO) 9.1 % (2-12); NEUTROPHILS # (AUTO) 11.1 X10'3 (1.8-7.7); NEUTROPHILS % (AUTO) 78.3 % (42-75); PLATELET COUNT 247 X10'3 (140-440); RED BLOOD COUNT 2.37 X10'6 (4.70-6.10); RED CELL DISTRIBUTION WIDTH 16.4 % (11.5-14.5); WHITE BLOOD COUNT 14.1 X10'3 (4.5-11.0)
[2024-04-16 06:28] LABS: HEMATOCRIT 21.6 % (42.0-52.0)
[2024-04-16 06:50] LABS: ALBUMIN 2.9 G/DL (3.4-5.0); ANION GAP 5 (8-16); BLOOD UREA NITROGEN 20 MG/DL (7-18); BUN/CREATININE RATIO 34.5 (10.0-20.0); CALCIUM 8.3 MG/DL (8.5-10.1); CHLORIDE 101 MMOL/L (99-107); CREATININE 0.58 MG/DL (0.60-1.10); GLUCOSE 126 MG/DL (70-104); MAGNESIUM 2.1 MG/DL (1.5-2.4); PHOSPHORUS 1.4 MG/DL (2.3-4.5); POTASSIUM 4.3 MMOL/L (3.5-5.1); SODIUM 134 MMOL/L (135-145); TOTAL CARBON DIOXIDE 28.2 MMOL/L (24-32); eCRCL 146 ML/MIN; eGFR > 90 ML/MIN
[2024-04-16] MEDS: folic acid/vitamin B complex w/vitamin C 0.8mg tablet PO SCH (11:05)
[2024-04-16] MEDS: ferrous sulfate 325mg tablet PO SCH (12:30)
[2024-04-16] MEDS: tamsulosin 0.4mg capsule PO SCH (20:19)
[2024-04-16] MEDS: zolpidem 5mg tablet PO ONE (22:18)
[2024-04-17] VITALS (8 sets, daily range): BP systolic 108–122; BP diastolic 64–71; PULSE 95–125; RESP 15–20; TEMP 98–98.3; O2SAT 93–97
[2024-04-17 07:25] LABS: BASOPHILS % (AUTO) 0.4 % (0-1); EOSINOPHILS % (AUTO) 0 % (0-6); HEMOGLOBIN 7.3 g/dl (14.0-17.9); LYMPHOCYTES % (AUTO) 17.4 % (21-51); MEAN CORPUSCULAR HEMOGLOBIN 31.5 PG (27.0-31.0); MEAN CORPUSCULAR HGB CONC 34.1 g/dL (33.0-36.5); MEAN CORPUSCULAR VOLUME 92.3 FL (78-98); MEAN PLATELET VOLUME 7.4 FL (7.4-10.4); NEUTROPHILS # (AUTO) 8.4 X10'3 (1.8-7.7); NEUTROPHILS % (AUTO) 73.2 % (42-75); PLATELET COUNT 324 X10'3 (140-440); RED BLOOD COUNT 2.33 X10'6 (4.70-6.10); RED CELL DISTRIBUTION WIDTH 15.8 % (11.5-14.5); WHITE BLOOD COUNT 11.5 X10'3 (4.5-11.0)
[2024-04-17 07:29] LABS: HEMATOCRIT 21.5 % (42.0-52.0)
[2024-04-17 09:18] LABS: ALBUMIN 2.5 G/DL (3.4-5.0); ANION GAP 7 (8-16); BLOOD UREA NITROGEN 17 MG/DL (7-18); CALCIUM 8.3 MG/DL (8.5-10.1); CHLORIDE 99 MMOL/L (99-107); CREATININE 0.74 MG/DL (0.60-1.10); GLUCOSE 111 MG/DL (70-104); MAGNESIUM 3.1 MG/DL (1.5-2.4); PHOSPHORUS 3.4 MG/DL (2.3-4.5); POTASSIUM 4.1 MMOL/L (3.5-5.1); SODIUM 133 MMOL/L (135-145); TOTAL CARBON DIOXIDE 26.9 MMOL/L (24-32); eCRCL 114 ML/MIN; eGFR > 90 ML/MIN
[2024-04-17 09:55] LABS: ABG PO2 388.2 mmHg (83.0-108.0)
[2024-04-17 09:56] LABS: ABG PO2 337.9 mmHg (83.0-108.0)
[2024-04-17 09:56] LABS: ABG PO2 330.2 mmHg (83.0-108.0)
[2024-04-17 09:58] LABS: ABG PO2 51.3 mmHg (83.0-108.0)
[2024-04-17] MEDS: JUVEN Smoothie Arginine/Glut./Ca2+Bmb (Juven 19.3pkt) 240ml cup PO SCH (17:30)
[2024-04-18] MEDS: zolpidem 5mg tablet PO ONE (01:32)
[2024-04-18 02:00] VITALS: BP 84/57; PULSE 95; RESP 20; TEMP 98.6; O2SAT 93
[2024-04-18 07:40] VITALS: BP 110/66; PULSE 112; RESP 20; TEMP 99.3; O2SAT 98
[2024-04-18 08:00] VITALS: RESP 20; O2SAT 93
[2024-04-18 08:04] LABS: BASOPHILS % (AUTO) 0.4 % (0-1); EOSINOPHILS # (AUTO) 0.2 X10'3 (0-0.9); EOSINOPHILS % (AUTO) 1.8 % (0-6); HEMATOCRIT 24.2 % (42.0-52.0); HEMOGLOBIN 8.2 g/dl (14.0-17.9); LYMPHOCYTES # (AUTO) 2.1 X10'3 (1.1-4.8); LYMPHOCYTES % (AUTO) 17.9 % (21-51); MEAN CORPUSCULAR HEMOGLOBIN 31.6 PG (27.0-31.0); MEAN CORPUSCULAR HGB CONC 33.9 g/dL (33.0-36.5); MEAN CORPUSCULAR VOLUME 93.3 FL (78-98); MEAN PLATELET VOLUME 7.4 FL (7.4-10.4); MONOCYTES # (AUTO) 1.2 X10'3 (0-0.9); MONOCYTES % (AUTO) 10.5 % (2-12); NEUTROPHILS % (AUTO) 69.4 % (42-75); PLATELET COUNT 458 X10'3 (140-440); RED CELL DISTRIBUTION WIDTH 15.6 % (11.5-14.5); WHITE BLOOD COUNT 11.5 X10'3 (4.5-11.0)
[2024-04-18 08:13] LABS: CHLORIDE 97 MMOL/L (99-107); PHOSPHORUS 2.5 MG/DL (2.3-4.5); POTASSIUM 3.9 MMOL/L (3.5-5.1); SODIUM 133 MMOL/L (135-145)
[2024-04-18 10:00] LABS: ALANINE AMINOTRANSFERASE 48 U/L (12-78); ALBUMIN 3.1 G/DL (3.4-5.0); ALBUMIN/GLOBULIN RATIO 0.8 (1.1-1.5); ALKALINE PHOSPHATASE 84 IU/L (46-116); ANION GAP 7 (8-16); ASPARTATE AMINO TRANSFERASE 35 U/L (10-37); BILIRUBIN,TOTAL 0.7 MG/DL (0.1-1.0); BLOOD UREA NITROGEN 18 MG/DL (7-18); BUN/CREATININE RATIO 27.3 (10.0-20.0); CALCIUM 8.8 MG/DL (8.5-10.1); CREATININE 0.66 MG/DL (0.60-1.10); GLUCOSE 134 MG/DL (70-104); TOTAL CARBON DIOXIDE 28.6 MMOL/L (24-32); TOTAL PROTEIN 7.1 G/DL (6.4-8.2); eCRCL 128 ML/MIN; eGFR > 90 ML/MIN
[2024-04-18 11:00] VITALS: BP 108/64; PULSE 102; RESP 20; TEMP 98.6; O2SAT 93
[2024-04-18 16:36] VITALS: BP 114/74; PULSE 68; RESP 18; TEMP 98.1; O2SAT 98
[2024-04-18 17:59] VITALS: RESP 24
== END 2024-04-18 18:05 | DRG 166 ==
LOC: PAS IN 10:13 → CICU 2S 16:42 → PCU 3S 04-15 17:55
PROVIDERS: ADMIT Thoracic Surgery (Cardiothoracic Vascular Surgery); ATTEND Thoracic Surgery (Cardiothoracic Vascular Surgery)
PROC: 021109W Bypass Coronary Artery, Two Arteries from Aorta with Autologous Venous Tissue, Open Approach (ICD-10-PCS; 2024-04-13)
PROC: 06BP4ZZ Excision of Right Saphenous Vein, Percutaneous Endoscopic Approach (ICD-10-PCS; 2024-04-13)
PROC: 02100Z9 Bypass Coronary Artery, One Artery from Left Internal Mammary, Open Approach (ICD-10-PCS; 2024-04-13)
PROC: B24BZZ4 Ultrasonography of Heart with Aorta, Transesophageal (ICD-10-PCS; 2024-04-13)
PROC: 5A1221Z Performance of Cardiac Output, Continuous (ICD-10-PCS; 2024-04-13)
PROC: 02100Z8 Bypass Coronary Artery, One Artery from Right Internal Mammary, Open Approach (ICD-10-PCS; principal; 2024-04-13 12:38)
PROC: 30233N1 Transfusion of Nonautologous Red Blood Cells into Peripheral Vein, Percutaneous Approach (ICD-10-PCS; 2024-04-15)
DX: I25.10 Atherosclerotic heart disease of native coronary artery without angina pectoris (principal); D64.89 Other specified anemias
CPT/HCPCS: 36415; 36430; 36600; 71045; 71046; 80048; 80053; 81001; 82330; 82435; 82803; 82947; 82948; 83036; 83735; 84100; 84132; 84295; 85007; 85018; 85025; 85027; 85347; 85610; 85730; 86885; 86900; 86901; 86920; 87081; 93005; 93312; 93325; 93880; 93970; 94002; 94010; 94760; 97116; 97161; 97530; A4333; A4615; A4618; A6258; A6449; A7000; A7048; C1751; C1758; G0378; J0171; J0690; J1644; J1815; J1885; J1940; J2060; J2150; J2250; J2270; J2371; J2405; J2440; J2704; J2720; J2795; J2919; J3370; J3372; J3475; J3480; J3490; J7030; J7040; J7050; J7060; J7120; P9016; P9045; P9047

== ENCOUNTER 2024-05-05 12:42 | Inpatient (IN) | payer MEDICAID ==
[~2024-05-05] VITALS: Ht 177.8 cm; Wt 76.2 kg
[~2024-05-05 12:42] MED LIST changes: -Insulin Reg/NS 100units/100mL 100 ML IV SCH; -dextrose 50%-water 50ml dispensing syringe IV PRN; -insulin glargine (Lantus) pen - multi-dose SQ PRN
[2024-05-05 13:46] LABS: BASOPHILS # (AUTO) 0.1 X10'3 (0-0.2); EOSINOPHILS # (AUTO) 0.1 X10'3 (0-0.9); HEMOGLOBIN 7.8 g/dl (14.0-17.9); WHITE BLOOD COUNT 12.3 X10'3 (4.5-11.0)
[2024-05-05 13:47] LABS: BASOPHILS % (AUTO) 0.5 % (0-1); EOSINOPHILS % (AUTO) 0.6 % (0-6); HEMATOCRIT 24.8 % (42.0-52.0); LYMPHOCYTES # (AUTO) 0.7 X10'3 (1.1-4.8); LYMPHOCYTES % (AUTO) 5.9 % (21-51); MEAN CORPUSCULAR HEMOGLOBIN 28.3 PG (27.0-31.0); MEAN CORPUSCULAR HGB CONC 31.5 g/dL (33.0-36.5); MEAN CORPUSCULAR VOLUME 89.9 FL (78-98); MEAN PLATELET VOLUME 6.9 FL (7.4-10.4); NEUTROPHILS # (AUTO) 10.4 X10'3 (1.8-7.7); PLATELET COUNT 813 X10'3 (140-440); RED BLOOD COUNT 2.76 X10'6 (4.70-6.10); RED CELL DISTRIBUTION WIDTH 18.5 % (11.5-14.5)
[2024-05-05 14:16] LABS: ALANINE AMINOTRANSFERASE 25 U/L (12-78); ALBUMIN 2.4 G/DL (3.4-5.0); ALBUMIN/GLOBULIN RATIO 0.5 (1.1-1.5); ALKALINE PHOSPHATASE 97 IU/L (46-116); ANION GAP 13 (8-16); ASPARTATE AMINO TRANSFERASE 15 U/L (10-37); BILIRUBIN,TOTAL 0.3 MG/DL (0.1-1.0); CALCIUM 9.2 MG/DL (8.5-10.1); CHLORIDE 98 MMOL/L (99-107); CREATININE 12.83 MG/DL (0.60-1.10); GLUCOSE 112 MG/DL (70-104); PRO BRAIN NATRIURETIC PEPTIDE 1440 PG/ML (0-125); SODIUM 131 MMOL/L (135-145); TOTAL CARBON DIOXIDE 20.1 MMOL/L (24-32); TOTAL PROTEIN 7.5 G/DL (6.4-8.2); eCRCL 7 ML/MIN; eGFR 4 ML/MIN
[2024-05-05 14:18] LABS: PLATELET ESTIMATE INCREASED; TOTAL CELLS COUNTED 100
[2024-05-05 14:19] LABS: ANISOCYTOSIS 2+; HYPOCHROMASIA 1+; ROULEAUX 1+
[2024-05-05 14:20] LABS: BURR CELLS 1+; POLYCHROMASIA 1+; TARGET CELLS FEW
[2024-05-05 14:28] LABS: BLOOD UREA NITROGEN 185 MG/DL (7-18); BUN/CREATININE RATIO 14.4 (10.0-20.0)
[2024-05-05 14:33] LABS: POTASSIUM 7.4 MMOL/L (3.5-5.1)
[2024-05-05] MEDS ORDERED: NPH, human insulin isophane inj. SQ SCH (14:50)
[2024-05-05] MEDS: albuterol 2.5 MG/3 ML nebule NEB ONE (15:04)
[2024-05-05 15:06] VITALS: PULSE 106; RESP 20; O2SAT 98
[2024-05-05 15:11] VITALS: PULSE 106; RESP 18; O2SAT 97
[2024-05-05] MEDS: dextrose 50%-water 50ml dispensing syringe IV ONE ×2 (15:30→19:40)
[2024-05-05] MEDS: insulin regular, human 10 units/0.1 ml syringe IV ONE ×2 (15:30→19:40)
[2024-05-05] MEDS: CALCIUM GLUC 1gm/50ml NACL,iso 50 ML IV ONE (15:30)
[2024-05-05] MEDS ORDERED: acetaminophen 325mg tablet PO PRN (16:10)
[2024-05-05] MEDS ORDERED: potassium Cl 40MEQ/1/2NS 520ml 520 ML IV PRN (16:10)
[2024-05-05] MEDS ORDERED: ondansetron/PF 4mg/2ml inj IV PRN (16:10)
[2024-05-05] MEDS ORDERED: potassium Cl 20 mEq SR tablet PO PRN (16:10)
[2024-05-05] MEDS ORDERED: bisacodyl 10mg suppository rectal RC PRN (16:10)
[2024-05-05] MEDS ORDERED: magnesium sulf-water 2g/50mL 50 ML IV PRN (16:10)
[2024-05-05] MEDS: PERFLUTREN PROTEIN-A MICROSPHR (Optison) 0.22 MG/ML 3ML VIAL IV ONE (16:40)
[2024-05-05 17:50] LABS: ALANINE AMINOTRANSFERASE 21 U/L (12-78); ALBUMIN 2.2 G/DL (3.4-5.0); ALBUMIN/GLOBULIN RATIO 0.4 (1.1-1.5); ALKALINE PHOSPHATASE 93 IU/L (46-116); ANION GAP 14 (8-16); ASPARTATE AMINO TRANSFERASE 16 U/L (10-37); BILIRUBIN,TOTAL 0.3 MG/DL (0.1-1.0); CALCIUM 9.3 MG/DL (8.5-10.1); CHLORIDE 97 MMOL/L (99-107); CREATININE 13.16 MG/DL (0.60-1.10); GLUCOSE 122 MG/DL (70-104); SODIUM 129 MMOL/L (135-145); TOTAL CARBON DIOXIDE 18.3 MMOL/L (24-32); TOTAL PROTEIN 7.1 G/DL (6.4-8.2); eCRCL 6 ML/MIN; eGFR 4 ML/MIN
[2024-05-05 18:14] LABS: BLOOD UREA NITROGEN 200 MG/DL (7-18); BUN/CREATININE RATIO 15.2 (10.0-20.0)
[2024-05-05 18:24] LABS: POTASSIUM 6.8 MMOL/L (3.5-5.1)
[2024-05-05] MEDS: LidoCAINE 2% Topical Jelly 11mL syringe (UROJET) TOP ONE (18:30)
[2024-05-05 18:31] LABS: BILIRUBIN,URINE NEGATIVE (Neg); CLARITY,URINE CLEAR (Clear); COLOR,URINE YELLOW (Yellow); GLUCOSE, URINE NEGATIVE (Neg); KETONES,URINE NEGATIVE (Neg); LEUKOCYTE ESTERASE ,URINE NEGATIVE (Neg); NITRITES, URINE NEGATIVE (Neg); OCCULT BLOOD,URINE SMALL (Neg); PH,URINE 5.5 (4.8-8.0); PROTEIN,URINE NEGATIVE (Neg); UROBILINOGEN,URINE 0.2 E.U/dL (0.2-1.0)
[2024-05-05 18:32] LABS: UA COLLECTION TYPE URINAL
[2024-05-05] MEDS: normal saline 1000ml 1,000 ML IV SCH (18:50)
[2024-05-05 18:54] LABS: BACTERIA,URINE NONE SEEN /HPF (Neg); RBC,URINE 0-2 /HPF (0-2); SQUAMOUS EPITHELIAL CELL,UR NONE SEEN /LPF (FEW); WBC,URINE 0-4 /HPF (0-4)
[2024-05-05 19:10] VITALS: BP 139/81; PULSE 111; RESP 16; TEMP 97.6; O2SAT 96
[2024-05-05] MEDS: sodium bicarbonate (8.4%) 1 mEq/ml syringe IV ONE (19:40)
[2024-05-05] MEDS ORDERED: CALCIUM GLUC 1gm/50ml NACL,iso 50 ML IV PRN (19:40)
[2024-05-05 20:00] VITALS: RESP 18; O2SAT 98
[2024-05-05] MEDS: K and/or MAG REPLACEMENT MC SCH (20:00)
[2024-05-05] MEDS: docusate sod 100mg capsule PO SCH (20:24)
[2024-05-05] MEDS: SODIUM ZIRCONIUM CYCLOSILICATE 10 GM POWD.PACK PO ONE (20:33)
[2024-05-05 20:53] LABS: ALBUMIN 2.5 G/DL (3.4-5.0); ANION GAP 12 (8-16); CALCIUM 9.6 MG/DL (8.5-10.1); CHLORIDE 100 MMOL/L (99-107); CREATININE 9.99 MG/DL (0.60-1.10); GLUCOSE 144 MG/DL (70-104); POTASSIUM 5.2 MMOL/L (3.5-5.1); SODIUM 135 MMOL/L (135-145); eCRCL 8 ML/MIN; eGFR 5 ML/MIN
[2024-05-05 20:59] LABS: BLOOD UREA NITROGEN 162 MG/DL (7-18); BUN/CREATININE RATIO 16.2 (10.0-20.0)
[2024-05-05 22:00] VITALS: BP 126/55; PULSE 106; RESP 15; TEMP 97.5; O2SAT 96
[2024-05-06] VITALS (15 sets, daily range): BP systolic 107–145; BP diastolic 62–88; PULSE 90–138; RESP 15–20; TEMP 97.3–98.1; O2SAT 93–98
[2024-05-06] MEDS: LORazepam 2 mg/ml vial IV PRN (01:57)
[2024-05-06 06:09] LABS: BASOPHILS % (AUTO) 0.4 % (0-1); LYMPHOCYTES # (AUTO) 0.7 X10'3 (1.1-4.8); MEAN PLATELET VOLUME 6.5 FL (7.4-10.4); RED CELL DISTRIBUTION WIDTH 18.1 % (11.5-14.5); WHITE BLOOD COUNT 10.5 X10'3 (4.5-11.0)
[2024-05-06 06:11] LABS: EOSINOPHILS % (AUTO) 0.4 % (0-6); HEMATOCRIT 25.1 % (42.0-52.0); HEMOGLOBIN 8.3 g/dl (14.0-17.9); LYMPHOCYTES % (AUTO) 6.5 % (21-51); MEAN CORPUSCULAR HEMOGLOBIN 29.4 PG (27.0-31.0); MONOCYTES # (AUTO) 1.3 X10'3 (0-0.9); MONOCYTES % (AUTO) 12.4 % (2-12); NEUTROPHILS # (AUTO) 8.4 X10'3 (1.8-7.7); NEUTROPHILS % (AUTO) 80.3 % (42-75); PLATELET COUNT 823 X10'3 (140-440); RED BLOOD COUNT 2.82 X10'6 (4.70-6.10)
[2024-05-06 06:25] LABS: ANION GAP 10 (8-16); BLOOD UREA NITROGEN 57 MG/DL (7-18); BUN/CREATININE RATIO 24.8 (10.0-20.0); CALCIUM 9.4 MG/DL (8.5-10.1); CHLORIDE 110 MMOL/L (99-107); GLUCOSE 114 MG/DL (70-104); SODIUM 145 MMOL/L (135-145); TOTAL CARBON DIOXIDE 24.6 MMOL/L (24-32); eCRCL 37 ML/MIN; eGFR 29 ML/MIN
[2024-05-06 06:26] LABS: ALANINE AMINOTRANSFERASE 22 U/L (12-78); ALBUMIN 2.2 G/DL (3.4-5.0); ALBUMIN/GLOBULIN RATIO 0.4 (1.1-1.5); ALKALINE PHOSPHATASE 91 IU/L (46-116); ASPARTATE AMINO TRANSFERASE 25 U/L (10-37); BILIRUBIN,TOTAL 0.3 MG/DL (0.1-1.0); MAGNESIUM 1.7 MG/DL (1.5-2.4); TOTAL PROTEIN 7.4 G/DL (6.4-8.2)
[2024-05-06 06:47] LABS: POTASSIUM 4.5 MMOL/L (3.5-5.1)
[2024-05-06] MEDS ORDERED: acetaminophen 325mg tablet PO PRN (06:55)
[2024-05-06] MEDS: metoprolol succinate 25mg (24-HOUR) SR. Tablet PO SCH (08:10)
[2024-05-06] MEDS ORDERED: HYDROcodone/acetaminophen 5mg/325mg tablet PO PRN (09:00)
[2024-05-06] MEDS: HYDROcodone/acetaminophen 10/325mg tab PO PRN (09:23)
[2024-05-06] MEDS ORDERED: potassium cl 20mEq in 1/2 NS 1,000 ML IV SCH (13:15)
[2024-05-06 14:11] LABS: ALBUMIN 1.4 G/DL (3.4-5.0); ANION GAP 11 (8-16); BLOOD UREA NITROGEN 17 MG/DL (7-18); BUN/CREATININE RATIO 30.4 (10.0-20.0); CHLORIDE 120 MMOL/L (99-107); CREATININE 0.56 MG/DL (0.60-1.10); GLUCOSE 82 MG/DL (70-104); PHOSPHORUS 1.8 MG/DL (2.3-4.5); SODIUM 150 MMOL/L (135-145); TOTAL CARBON DIOXIDE 19.2 MMOL/L (24-32); eCRCL 147 ML/MIN; eGFR > 90 ML/MIN
[2024-05-06 14:16] LABS: CALCIUM 5.9 MG/DL (8.5-10.1); POTASSIUM 2.4 MMOL/L (3.5-5.1)
[2024-05-06] MEDS: potassium Cl 20 mEq SR tablet PO PRN (14:38)
[2024-05-06] MEDS: magnesium sulf-water 4G/100mL 100 ML IV PRN (14:38)
[2024-05-06] MEDS: magnesium sulf-water 4G/100mL 100 ML IV STA (14:49)
[2024-05-06] MEDS: potassium cl 20mEq in 1/2 NS 1,000 ML IV SCH (14:55)
[2024-05-06] MEDS: potassium phosphate inj 30 MMOL in normal saline 500ml IV soln 500 ML IV STA (15:29)
[2024-05-06 15:31] LABS: ALBUMIN 1.9 G/DL (3.4-5.0); ANION GAP 8 (8-16); BLOOD UREA NITROGEN 20 MG/DL (7-18); BUN/CREATININE RATIO 20.4 (10.0-20.0); CALCIUM 8.3 MG/DL (8.5-10.1); CHLORIDE 109 MMOL/L (99-107); CREATININE 0.98 MG/DL (0.60-1.10); GLUCOSE 145 MG/DL (70-104); MAGNESIUM 2.8 MG/DL (1.5-2.4); PHOSPHORUS 2.3 MG/DL (2.3-4.5); POTASSIUM 3.5 MMOL/L (3.5-5.1); SODIUM 141 MMOL/L (135-145); TOTAL CARBON DIOXIDE 23.9 MMOL/L (24-32); eCRCL 84 ML/MIN; eGFR 78 ML/MIN
[2024-05-06] MEDS: tamsulosin 0.4mg capsule PO SCH (19:35)
[2024-05-06 20:36] LABS: ANION GAP 7 (8-16); BLOOD UREA NITROGEN 14 MG/DL (7-18); BUN/CREATININE RATIO 18.9 (10.0-20.0); CHLORIDE 107 MMOL/L (99-107); CREATININE 0.74 MG/DL (0.60-1.10); GLUCOSE 136 MG/DL (70-104); POTASSIUM 3.9 MMOL/L (3.5-5.1); SODIUM 138 MMOL/L (135-145); TOTAL CARBON DIOXIDE 23.8 MMOL/L (24-32)
[2024-05-06 20:37] LABS: ALANINE AMINOTRANSFERASE 20 U/L (12-78); ALBUMIN/GLOBULIN RATIO 0.4 (1.1-1.5); ALKALINE PHOSPHATASE 82 IU/L (46-116); ASPARTATE AMINO TRANSFERASE 23 U/L (10-37); BILIRUBIN,TOTAL 0.2 MG/DL (0.1-1.0); CALCIUM 8.3 MG/DL (8.5-10.1); TOTAL PROTEIN 6.8 G/DL (6.4-8.2); eCRCL 111 ML/MIN; eGFR > 90 ML/MIN
[2024-05-06] MEDS: CefTRIAXone/D5W-Rocephin 1gm 50 ML IV ONE (20:57)
[2024-05-06] MEDS ORDERED: docusate sod 100mg capsule PO SCH (21:00)
[2024-05-06] MEDS: Melatonin 3mg tablet PO SCH (21:49)
[2024-05-07] VITALS (26 sets, daily range): BP systolic 106–149; BP diastolic 58–88; PULSE 80–118; RESP 13–20; O2SAT 93–98
[2024-05-07 06:43] LABS: LYMPHOCYTES # (AUTO) 1.3 X10'3 (1.1-4.8); LYMPHOCYTES % (AUTO) 11.9 % (21-51)
[2024-05-07 06:45] LABS: BASOPHILS % (AUTO) 0.4 % (0-1); EOSINOPHILS # (AUTO) 0.1 X10'3 (0-0.9); EOSINOPHILS % (AUTO) 1.4 % (0-6); HEMATOCRIT 23.3 % (42.0-52.0); HEMOGLOBIN 7.7 g/dl (14.0-17.9); MEAN CORPUSCULAR HGB CONC 33.1 g/dL (33.0-36.5); MEAN CORPUSCULAR VOLUME 90.5 FL (78-98); MEAN PLATELET VOLUME 6.8 FL (7.4-10.4); MONOCYTES # (AUTO) 1.4 X10'3 (0-0.9); MONOCYTES % (AUTO) 12.4 % (2-12); NEUTROPHILS % (AUTO) 73.9 % (42-75); PLATELET COUNT 743 X10'3 (140-440); RED BLOOD COUNT 2.57 X10'6 (4.70-6.10); RED CELL DISTRIBUTION WIDTH 17.9 % (11.5-14.5); WHITE BLOOD COUNT 10.9 X10'3 (4.5-11.0)
[2024-05-07] MEDS: ringers solution, lacted 1,000 ML IV SCH (07:05)
[2024-05-07 07:10] LABS: ALANINE AMINOTRANSFERASE 25 U/L (12-78); ALBUMIN 1.9 G/DL (3.4-5.0); ALBUMIN/GLOBULIN RATIO 0.4 (1.1-1.5); ALKALINE PHOSPHATASE 80 IU/L (46-116); ANION GAP 8 (8-16); ASPARTATE AMINO TRANSFERASE 20 U/L (10-37); BILIRUBIN,TOTAL 0.3 MG/DL (0.1-1.0); BLOOD UREA NITROGEN 7 MG/DL (7-18); BUN/CREATININE RATIO 14.3 (10.0-20.0); CALCIUM 8.1 MG/DL (8.5-10.1); CHLORIDE 108 MMOL/L (99-107); CREATININE 0.49 MG/DL (0.60-1.10); GLUCOSE 83 MG/DL (70-104); MAGNESIUM 1.8 MG/DL (1.5-2.4); PHOSPHORUS 1.8 MG/DL (2.3-4.5); POTASSIUM 4.4 MMOL/L (3.5-5.1); SODIUM 140 MMOL/L (135-145); TOTAL CARBON DIOXIDE 24.4 MMOL/L (24-32); TOTAL PROTEIN 6.6 G/DL (6.4-8.2); eCRCL 168 ML/MIN; eGFR > 90 ML/MIN
[2024-05-07 07:49] LABS: OSMOLALITY 283 MOSM/K (280-300)
[2024-05-07] MEDS ORDERED: CefTRIAXone/D5W-Rocephin 1gm 50 ML IV SCH (08:00)
[2024-05-07] MEDS: ringers solution, lacted 1,000 ML IV ONE (09:20)
[2024-05-07] MEDS: potassium phosphate inj 30 MMOL in normal saline 500ml IV soln 500 ML IV ONE (09:21)
[2024-05-07] MEDS: aspirin 81mg, enteric-coated 1 TAB TABLET.DR PO SCH (09:22)
[2024-05-07] MEDS: magnesium sulf-water 2g/50mL 50 ML IV ONE (09:22)
[2024-05-07] MEDS: atorvastatin 20mg tablet PO SCH (09:23)
[2024-05-07 12:46] LABS: ALBUMIN 1.9 G/DL (3.4-5.0); ANION GAP 8 (8-16); BLOOD UREA NITROGEN 5 MG/DL (7-18); BUN/CREATININE RATIO 8.9 (10.0-20.0); CALCIUM 7.9 MG/DL (8.5-10.1); CHLORIDE 105 MMOL/L (99-107); CREATININE 0.56 MG/DL (0.60-1.10); GLUCOSE 102 MG/DL (70-104); MAGNESIUM 1.9 MG/DL (1.5-2.4); PHOSPHORUS 2.8 MG/DL (2.3-4.5); POTASSIUM 4.2 MMOL/L (3.5-5.1); SODIUM 137 MMOL/L (135-145); TOTAL CARBON DIOXIDE 23.8 MMOL/L (24-32); eCRCL 147 ML/MIN; eGFR > 90 ML/MIN
[2024-05-07 19:17] LABS: BASOPHILS # (AUTO) 0.1 X10'3 (0-0.2); EOSINOPHILS # (AUTO) 0.4 X10'3 (0-0.9); EOSINOPHILS % (AUTO) 3.9 % (0-6)
[2024-05-07 19:18] LABS: BASOPHILS % (AUTO) 0.7 % (0-1); HEMATOCRIT 24.5 % (42.0-52.0); HEMOGLOBIN 7.8 g/dl (14.0-17.9); LYMPHOCYTES # (AUTO) 1.4 X10'3 (1.1-4.8); LYMPHOCYTES % (AUTO) 12.6 % (21-51); MEAN CORPUSCULAR HEMOGLOBIN 28.3 PG (27.0-31.0); MEAN CORPUSCULAR HGB CONC 31.8 g/dL (33.0-36.5); MEAN CORPUSCULAR VOLUME 88.9 FL (78-98); MEAN PLATELET VOLUME 6.5 FL (7.4-10.4); MONOCYTES # (AUTO) 0.9 X10'3 (0-0.9); MONOCYTES % (AUTO) 8.4 % (2-12); NEUTROPHILS # (AUTO) 8.1 X10'3 (1.8-7.7); NEUTROPHILS % (AUTO) 74.4 % (42-75); PLATELET COUNT 744 X10'3 (140-440); RED BLOOD COUNT 2.76 X10'6 (4.70-6.10); RED CELL DISTRIBUTION WIDTH 17.9 % (11.5-14.5)
[2024-05-07 19:27] LABS: ALBUMIN 1.8 G/DL (3.4-5.0); ANION GAP 8 (8-16); BLOOD UREA NITROGEN 7 MG/DL (7-18); BUN/CREATININE RATIO 9.5 (10.0-20.0); CALCIUM 7.8 MG/DL (8.5-10.1); CHLORIDE 103 MMOL/L (99-107); CREATININE 0.74 MG/DL (0.60-1.10); GLUCOSE 163 MG/DL (70-104); MAGNESIUM 1.6 MG/DL (1.5-2.4); PHOSPHORUS 1.8 MG/DL (2.3-4.5); POTASSIUM 3.7 MMOL/L (3.5-5.1); SODIUM 133 MMOL/L (135-145); TOTAL CARBON DIOXIDE 21.9 MMOL/L (24-32); eCRCL 111 ML/MIN; eGFR > 90 ML/MIN
[2024-05-07] MEDS ORDERED: potassium Cl 40MEQ/1/2NS 520ml 520 ML IV PRN (19:50)
[2024-05-07] MEDS ORDERED: magnesium sulf-water 2g/50mL 50 ML IV PRN (19:50)
[2024-05-07] MEDS ORDERED: magnesium Cl slow-release 64mg tablet PO PRN (19:50)
[2024-05-07] MEDS ORDERED: magnesium sulf-water 4G/100mL 100 ML IV PRN (19:50)
[2024-05-07] MEDS ORDERED: potassium Cl 20 mEq SR tablet PO PRN ×2 (19:50)
[2024-05-07] MEDS: K and/or MAG REPLACEMENT MC SCH (20:00)
[2024-05-07] MEDS: Neutra Phos packet PO PRN (22:02)
[2024-05-08] VITALS (15 sets, daily range): BP systolic 108–155; BP diastolic 65–88; PULSE 86–118; RESP 13–21; O2SAT 92–98
[2024-05-08 06:00] LABS: BASOPHILS # (AUTO) 0.1 X10'3 (0-0.2); HEMOGLOBIN 7.7 g/dl (14.0-17.9)
[2024-05-08 06:03] LABS: BASOPHILS % (AUTO) 0.6 % (0-1); EOSINOPHILS # (AUTO) 0.5 X10'3 (0-0.9); EOSINOPHILS % (AUTO) 5.8 % (0-6); HEMATOCRIT 24.5 % (42.0-52.0); LYMPHOCYTES # (AUTO) 1.3 X10'3 (1.1-4.8); LYMPHOCYTES % (AUTO) 14.4 % (21-51); MEAN CORPUSCULAR HEMOGLOBIN 28.2 PG (27.0-31.0); MEAN CORPUSCULAR HGB CONC 31.5 g/dL (33.0-36.5); MEAN CORPUSCULAR VOLUME 89.3 FL (78-98); MEAN PLATELET VOLUME 6.7 FL (7.4-10.4); MONOCYTES # (AUTO) 0.9 X10'3 (0-0.9); MONOCYTES % (AUTO) 9.2 % (2-12); NEUTROPHILS # (AUTO) 6.5 X10'3 (1.8-7.7); PLATELET COUNT 740 X10'3 (140-440); RED BLOOD COUNT 2.74 X10'6 (4.70-6.10); RED CELL DISTRIBUTION WIDTH 17.8 % (11.5-14.5); WHITE BLOOD COUNT 9.3 X10'3 (4.5-11.0)
[2024-05-08 06:16] LABS: ALANINE AMINOTRANSFERASE 34 U/L (12-78); ALBUMIN 1.8 G/DL (3.4-5.0); ALBUMIN/GLOBULIN RATIO 0.4 (1.1-1.5); ALKALINE PHOSPHATASE 71 IU/L (46-116); ANION GAP 6 (8-16); ASPARTATE AMINO TRANSFERASE 31 U/L (10-37); BILIRUBIN,TOTAL 0.2 MG/DL (0.1-1.0); BLOOD UREA NITROGEN 4 MG/DL (7-18); BUN/CREATININE RATIO 8.9 (10.0-20.0); CHLORIDE 107 MMOL/L (99-107); CREATININE 0.45 MG/DL (0.60-1.10); GLUCOSE 92 MG/DL (70-104); MAGNESIUM 1.6 MG/DL (1.5-2.4); PHOSPHORUS 1.9 MG/DL (2.3-4.5); POTASSIUM 3.5 MMOL/L (3.5-5.1); SODIUM 139 MMOL/L (135-145); TOTAL CARBON DIOXIDE 25.6 MMOL/L (24-32); TOTAL PROTEIN 6.4 G/DL (6.4-8.2); eCRCL 183 ML/MIN; eGFR > 90 ML/MIN
[2024-05-08 06:26] LABS: OSMOLALITY 285 MOSM/K (280-300)
== END 2024-05-08 15:30 | DRG 501 ==
LOC: ER 12:42 → ED HOLD 15:06 → UNDOADMIN 15:06 → ED HOLD 16:12 → PCU 3S 19:20 → CICU 2S 05-06 15:19
PROVIDERS: ADMIT Family Medicine; ATTEND Family Medicine
PROC: BW211ZZ Computerized Tomography (CT Scan) of Abdomen and Pelvis using Low Osmolar Contrast (ICD-10-PCS; principal; 2024-05-05)
DX: N40.1 Benign prostatic hyperplasia with lower urinary tract symptoms (principal); N17.0 Acute kidney failure with tubular necrosis; I95.9 Hypotension, unspecified; J90 Pleural effusion, not elsewhere classified; E87.1 Hypo-osmolality and hyponatremia; N13.8 Other obstructive and reflux uropathy; E78.00 Pure hypercholesterolemia, unspecified; E87.5 Hyperkalemia; F43.0 Acute stress reaction; I25.10 Atherosclerotic heart disease of native coronary artery without angina pectoris; J98.11 Atelectasis; K82.8 Other specified diseases of gallbladder; N13.30 Unspecified hydronephrosis; N21.0 Calculus in bladder; N28.1 Cyst of kidney, acquired; N40.0 Benign prostatic hyperplasia without lower urinary tract symptoms; Z79.899 Other long term (current) drug therapy; Z80.41 Family history of malignant neoplasm of ovary; Z82.3 Family history of stroke; Z87.442 Personal history of urinary calculi; Z91.81 History of falling; Z95.1 Presence of aortocoronary bypass graft; E86.9 Volume depletion, unspecified; G89.29 Other chronic pain; E83.39 Other disorders of phosphorus metabolism; E87.6 Hypokalemia; E83.42 Hypomagnesemia
CPT/HCPCS: 36415; 71045; 71250; 74176; 80048; 80053; 81001; 82330; 82948; 83605; 83735; 83880; 83930; 84100; 84484; 85007; 85025; 87081; 93005; 93308; 94640; 94760; 97116; 97161; 97530; 99285; A4615; A5200; A6212; A6213; A6250; C1758; G0378; J0610; J0696; J1815; J2060; J3475; J3480; J3490; J7030; J7040; J7120